=== PATIENT | female | born 1965 | race Caucasian/White ===

== ENCOUNTER 2019-11-15 18:12 | Emergency (ER) | payer OTHER, SELFPAY ==
--- NOTE | ~2019-11-15 | XR_ITS ---
EXAMINATION: XR chest 2V DATE: 11/15/2019 18:44 INDICATION: Cough and chest pain TECHNIQUE: PA and lateral views of the chest are obtained. COMPARISON: None available FINDINGS: An asymmetric opacity projects in the right lung apex. There is no pleural effusion or pneu mothorax. The cardiomediastinal silhouette is normal. The visualized bones and soft tissues are unrem arkable. IMPRESSION: 1. Asymmetric opacity of the right lung apex which may be infectious or inflammatory however malignan cy can have a similar appearance. Follow-up with nonemergent CT of the chest is recommended. Reviewed, dictated and finalized at location A. IMPRESSION: 1. Asymmetric opacity of the right lung apex which may be infectious or inflamm atory however malignancy can have a similar appearance. Follow-up with nonemerg ent CT of the chest is recommended.
[2019-11-15 18:25] VITALS: BP 95/63; PULSE 100; RESP 18; TEMP 36.9; O2SAT 97
--- NOTE | 2019-11-15 18:37 | ED.URI ---
HPI - URI/Sore Throat General Chief Complaint: Upper Respiratory Infection Stated Complaint: pneumonia Time Seen by Provider: 11/15/19 18:37 Source: patient Mode of arrival: ambulatory Limitations: no limitations History of Present Illness HPI Narrative: Christine Perez is a 54 yo female with a PMH for high cholesterol, intermittent chest pain, COPD, who comes to [facility] care with intermittent sob last few weeks - wants chest Xray because of hx of pneumonia Related Data Home Medications Medication Instructions Recorded Confirmed albuterol sulfate INHALATION 11/15/19 aspirin 11/15/19 atorvastatin 11/15/19 meclizine mg 11/15/19 nitroglycerin mg 11/15/19 sertraline mg 11/15/19 sumatriptan succinate mg PO 11/15/19 Allergies Allergy/AdvReac Type Severity Reaction Status Date / Time No Known Allergies Allergy Unverified 12/24/18 14:46 Review of Systems Review of Systems: Narrative: CONSTITUTIONAL: Denies fever, chills, sweats. EYES: Denies visual changes, redness, discharge. ENT: Denies rhinorrhea, congestion, sore throat, otalgia. CARDIOVASCULAR: Denies chest pain, palpitations, edema. RESPIRATORY: Occ dyspnea, wheezing, mild cough GASTROINTESTINAL: Denies abdominal pain, nausea, vomiting, diarrhea. GENITOURINARY: Denies dysuria, hematuria, abnormal discharge SKIN: Denies rash or itching. NEUROLOGIC: Denies numbness, or focal weakness. PSYCHIATRIC: Denies anxiety or depression. [facility] Family History Family History (Updated 11/15/19 @ 18:40 by Monique Cordero CNP) Other Heart disease Hypertension Social History Social History Smoking packs per day: 1 Smoking cigarettes per day: 20.0 Smoking status: Current every day smoker Tobacco type: cigarettes Alcohol intake: current Comments At time of signature, I agree with nursing past medical, surgical, social and family history. There is no relevant family history pertinent to the presenting complaint. Exam Narrative: Exam Narrative: GENERAL: This is a well-nourished, well-developed patient, in mild distress. HEAD: normocephalic, atraumatic. EYES: Sclera clear/white. Vision is grossly intact. EARS: External ears normal,. Hearing grossly intact. NOSE: External nose normal without nasal discharge, nares without redness, no rhinorrhea. THROAT: Mucous membranes moist, NECK: Neck supple, CARDIOVASCULAR: Regular rate and rhythm without murmurs, gallops, or rubs. RESPIRATORY: Clear to auscultation. Breath sounds equal bilaterally. No wheezes, rales, or rhonchi. GASTROINTESTINAL: Abdomen soft, SKIN: warm, intact with no suspicious lesions or rash, good texture and turgor. NEURO: awake, alert, and oriented to person, place and time. There were no obvious focal neurologic abnormalities. Steady gait EXTREMITIES: Normal range of motion. BACK: Nontender without deformity Course Course Emergency Course: chest Xray- Results:asymmetric opacity R lung apex. No pneumothorax. No cardiomegaly. Lesion may be due to infectious or for inflammatory origin however malignancy cannot be ruled out. Follow-up nonemergent CT recommended Vital Signs Vital signs: Vital Signs Temperature 98.5 F 11/15/19 18:25 Pulse Rate 100 11/15/19 18:25 Respiratory Rate 18 11/15/19 18:25 Blood Pressure 95/63 L 11/15/19 18:25 Pulse Oximetry 97 11/15/19 18:25 Temperature 98.5 F 11/15/19 18:25 Pulse Rate 100 11/15/19 18:25 Respiratory Rate 18 11/15/19 18:25 Blood Pressure 95/63 L 11/15/19 18:25 Pulse Oximetry 97 11/15/19 18:25 MDM - URI/Sore Throat Differential Diagnosis Differential diagnosis: Likely upper respiratory infection, sinusitis, bronchitis, pharyngitis and other Discharge Plan Discharge Clinical Impression: Pneumonia Qualifiers: Pneumonia type: due to unspecified organism Laterality: right Qualified Code(s): J18.9 - Pneumonia, unspecified organism Patient Di
== END 2019-11-15 19:30 | disposition home or self-care (01) ==
PROVIDERS: Emergency Provider Nurse Practitioner; PCP Internal Medicine
DX: J18.9 Pneumonia, unspecified organism (principal); E78.00 Pure hypercholesterolemia, unspecified; J44.9 Chronic obstructive pulmonary disease, unspecified; Z79.82 Long term (current) use of aspirin; F17.210 Nicotine dependence, cigarettes, uncomplicated
CPT/HCPCS: 71046; 99213; G0463

== ENCOUNTER 2021-11-26 10:30 | Outpatient (RCR) | payer OTHER, SELFPAY ==
--- NOTE | 2021-10-26 10:08 | PTOPEVAL ---
PHYSICAL THERAPY INITIAL EVALUATION. Thank you for referring Christine Perez to [facility].? The patient is scheduled to be seen for therapy? 1x every other week for 4 weeks. Please review, sign, date and return this plan of care TERENCE. I agree with and certify that the following plan of care is medically necessary. Referring Physician Date Attending Provider: Kristin Marquez, PA *PT Outpatient Evaluation Start: 10/26/21 Evaluation Information Diagnosis R knee pain Onset 20 years Additional Evaluation Detail Pt arrived 10 mins later for her evaluation this date Subjective Information Pt states she has had knee Query Text:As Reported By Patient/ pain for about 20 years. She Family was told about 15 years ago that she needed a total knee replacement but it was too soon. She states both of her knees hurt R>L, she states it locks up and gives out. She has not done any prior therapy . Pt states she is limited in her ability to stand or walk as long as she wants. Pt states she is used to the pain by now and is not sure why she has to come to therapy. Pt states a park near here has an outdoor gym, she has been using this almost daily for the last 2 weeks. Pain Assessment Right Knee(s) Reported Pain Level 3 Pain Description Aching,Stabbing Lowest Pain Intensity 3 Greatest Pain Intensity 7 Pain Aggravating Factors Walking,Weight Bearing/ Standing Lower Extremity Range of Motion General Lower Extremity Range of Motion WFL/Left,WFL/Right Gross Lower Extremity Range of Motion tavon knee flexion >130 deg Comments Lower Extremity Muscle Strength Testing General Lower Extremity Strength WFL/Left,WFL/Right Gross Lower Extremity Strength Tavon LE 4-/5 throughout - able to perform 3 glute bridges before loss of hip height - able to perform full squat with max knee flexion and return to standing without assist Palpation Assessment Palpation no tenderness Balance Assessment Time in Seconds 16 5 Time Sit to Stand Comments Without the use of UEs, equal Query Text:Normative Data: If Greater weight distribution Than 15 Second
--- NOTE | 2021-11-26 11:20 | PTOPEVAL ---
PHYSICAL THERAPY PROGRESS REPORT AND DISCHARGE SUMMARY. Thank you for referring Christine Perez to [facility].? The patient is to be discharged from skilled therapy services at this time. Please review, sign, date and return this plan of care TERENCE. I agree with and certify that the following plan of care is medically necessary. Referring Physician Date Attending Provider: Kristin Marquez, PA Evaluation Information Diagnosis R knee pain Onset 20 years Subjective Information Pt states her knees dont seem Query Text:As Reported By Patient/ to lock up at often. Family Pain Assessment Self Report Pain Assessment Right Knee(s) Reported Pain Level 5 Pain Frequency Chronic Greatest Pain Intensity 8 Pain Aggravating Factors Walking Lower Extremity Range of Motion General Lower Extremity Range of Motion WFL/Left,WFL/Right Gross Lower Extremity Range of Motion tavon knee flexion >130 deg Comments Lower Extremity Muscle Strength Testing General Lower Extremity Strength WFL/Left,WFL/Right Gross Lower Extremity Strength Tavon hip flexion 4+/5 tavon knee flexion/ext 4-/5 - able to perform 10 glute bridges before loss of hip height - able to perform full squat with max knee flexion and return to standing without assist Palpation Assessment Palpation none reported Balance Assessment 5 Time Sit to Stand Comments Initially: 16s, Without the Query Text:Normative Data: If Greater use of UEs, equal weight Than 15 Seconds, 74% Increase Risk for distribution Recurrent Falls 11/26/21: 13s, without use of UEs, equal weight distribution Gait Assessment Gait Pattern No Deviations/Normal Other Gait Observations mild increase in lateral pelvic sway Stair Climbing Assessment Stair Climbing Assessment Stair Climbing Assistive Devices Railings Stair Climbing Comments single railing for balance, no deviations noted Safety Assessment Factors Affecting Safety No Concerns General Exercise Exercise Description - reviewed HEP and had pt Query Text:Record Sets, Reps, perform demonstration Resistance, and Position - educated on benefits of home walking program - reviewed squat form with increase focus for posterior weight shift PT Clinical Summary Christine presents to therapy today for her progress report
== END 2021-11-29 08:37 | disposition home or self-care (01) ==
LOC: ANHPT 10:30
PROVIDERS: PCP Physician Assistant; Visit Provider Physician Assistant
DX: M25.561 Pain in right knee (principal)
CPT/HCPCS: 97110; 97112; 97161; 97530